=== PATIENT | male | born 1960 | race Caucasian/White ===

== ENCOUNTER 2024-12-26 05:59 | Day surgery (SDC) | payer BC, SELFPAY ==
[2024-12-19 07:09] VITALS: BMI 30.9
[2024-12-19 07:19] LABS: Hematocrit 48.2 % (39.0-52.0); Hemoglobin 16.0 g/dL (13.0-18.0); Mean Corp Hgb Conc. 33.2 g/dL (33.0-37.0); Mean Corpuscular Volume 87.2 fL (80.0-94.0); Nucleated Red Blood Cells % 0 % (-); Platelet Count 199 10^3/uL (130-400); Red Cell Dist. Width 13.9 % (11.5-14.5)
[2024-12-19 07:35] LABS: INR 1.77; PT 20.8 Sec (11.4-14.6)
[2024-12-19 07:44] LABS: ALT (SGPT) 25 U/L (0-50); AST (SGOT) 23 U/L (17-59); Albumin 4.5 g/dl (3.5-5.0); Alkaline Phosphatase 97 U/L (38-126); Calcium 10.1 mg/dl (8.4-10.2); Carbon Dioxide 29 mmol/L (22-30); Chloride 107 mmol/L (98-107); Estimated Creatinine Clearance 95 ml/min; Glucose 93 mg/dl (70-99); Magnesium 2.1 mg/dl (1.6-2.3); Potassium 5.1 mmol/L (3.5-5.1); Sodium 142 mmol/L (135-145); Total Protein 7.4 g/dl (6.3-8.2); eGFR > 60.00
[2024-12-19 07:46] LABS: Blood Urea Nitrogen 14 mg/dl (9-20)
--- NOTE | 2024-12-19 08:29 | HPS.HSE ---
Family Physician
-
Family Physician: CHIN Tubbs
Chief Complaint
-
Persistent atrial fibrillation.
History of Present Illness
The patient is a 64 year old male presenting today for persistent atrial fibrillation. He does report a history of anxiety, fatigue, and decreased exercise tolerance secondary to this diagnosis. He previously underwent a cardioversion in
August of this year. Unfortunately, his arrhythmia returned soon after this procedure. He is on current pharmacological therapy with Metoprolol Succinate and Diltiazem. He does report compliance with Xarelto for oral anticoagulation due to a
[id number] of 2. He is interested in pursuing pulmonary vein isolation for more definitive arrhythmia management. He denies any complaints today such as chest pain, shortness of breath at rest, nausea, vomiting, diarrhea, lightheadedness,
dizziness, cough, sore throat, or fever.
Medical History
Past Medical History
Past Medical History: Reports Other
Additional Past Medical History:
1. Persistent atrial fibrillation, status post cardioversion 08/2024; pharmacological therapy with Diltiazem and Metoprolol Succinate, oral anticoagulation with Xarelto.
2. Hypertension.
3. Hyperlipidemia.
4. Coronary artery disease/inferior STEMI, 2013, status post PCI with bare metal stent to proximal circumflex and balloon angioplasty of branch of third obtuse marginal.
5. Left lower extremity venous varicosities.
6. Obstructive sleep apnea, compliant with CPAP.
7. Small hiatal hernia.
8. Lumbar degenerative disc disease.
9. Enlarged right lobe of thyroid gland on pre-ablation chest CT.
10. Impaired fasting glucose.
11. Obesity, BMI 30.9.
12. History of tobacco abuse.
Past Surgical History: Reports Other
Additional Past Surgical History:
1. Cardioversion.
2. PCI with bare metal stent to proximal circumflex and balloon angioplasty of branch of third obtuse marginal.
3. Lumbar fusion.
4. [place] teeth extraction.
5. Dental extraction.
Social History
Tobacco: Former Smoker (He is a former 1 and 1/2 pack per day cigarette smoker who quit tobacco altogether in 2013. )
Alcohol: None
Personal:
Living: Other (He lives with his in a 3 story home. )
Family History
Family History: Not pertinent and Diabetes
Allergies / Home Medications
Allergy/Medication List:
Home medications:
1. Atorvastatin 40 mg p.o. at noon.
2. Diltiazem HCl 120 mg p.o. at noon.
3. Metoprolol Succinate 100 mg p.o. at noon.
4. Xarelto 20 mg p.o. at noon.
5. Zepbound 15 mg subcutaneous on Saturdays.
Allergies: No known drug allergies.
Review of Systems
-
A 12 point ROS was completed and negative except as noted: Yes
Physical Exam
Vital Signs
Blood pressure 141/78. Heart rate 72. Respirations 18. Pulse ox 100% on room air.
Height 6 feet. Weight 103.3 kg. BMI 30.9.
Physical Exam
General: Well Developed, Well Nourished and No Apparent Distress
HEENT: NormoCephalic, Moist mucous membranes, Atraumatic and PERRLA
Respiratory: Clear
Cardiac: Irregular Rhythm
GI: Soft, Non Tender, Non Distended and Other (Obese. )
Musculoskeletal: No Edema and Normal Gait & Station
Skin: Warm and Dry
Neuro: AO x 3 and Nonfocal/grossly intact
Laboratory Results
-
12/19/24 06:30
12/19/24 06:30
Laboratory Results
PT 20.8 Sec (11.4-14.6) H 12/19/24 06:30
INR 1.77 12/19/24 06:30
Total Bilirubin 0.8 mg/dl (0.2-1.3) 12/19/24 06:30
AST 23 U/L (17-59) 12/19/24 06:30
ALT 25 U/L (0-50) 12/19/24 06:30
Alkaline Phosphatase 97 U/L (38-126) 12/19/24 06:30
Magnesium 2.1.
Type and screen A positive.
EKG 12/19/2024: Atrial fibrillation.
Chest CT 12/20/2024: Single, individual right superior and inferior pulmonary veins. Conjoined left superior and inferior pulmonary veins forming a single left pulmonary venous ostium. No left atrial filling defect/thrombus is identified. Slightly
enlarged and heterogeneous right lobe of the thyroid gland for which a follow-up thyroid ultrasound could be considered if not previously performed.
Echocardiogram 05/2022: Mild LVH. RVSP 32 mmHg. Trace aortic insufficiency.
Impression/Plan
-
IMPRESSION/PLAN:
1. Persistent atrial fibrillation: The patient is in need of a pulmonary vein isolation with Dr. Bennie Arechiga on 12/26/2024. The benefits and risks of the procedure have been explained to the patient. The patient understands these risks and wishes
to proceed. He will not be required to undergo a pre-procedural transesophageal echocardiogram as he has been compliant with his home oral anticoagulation. He is aware to continue Xarelto uninterrupted prior to his ablation. He will hold his
Zepbound within 1 week of his procedure. He will take no medications the morning of his ablation.
2. Enlarged right lobe of thyroid gland on pre-ablation chest CT: The patient was notified of this result through pre-operative phone call. Per radiology, a thyroid ultrasound could be considered if not previously preformed. Results of his chest CT
will be forwarded to his primary care physician, Dr. Reynaldo Tran, for further follow-up.
[2024-12-26] VITALS (13 sets, daily range): BP systolic 99–118; BP diastolic 69–87; BMI 30.9
--- NOTE | 2024-12-26 07:07 | ITS.CL.ABL ---
Client Application Support Engineer - Ablation
Ablation
Procedure Report:
Primary Cellar Packer: Dr Cha
Procedure Date: 12/26/2024
Patient History:
Patient is a pleasant 64-year-old male with a past medical history significant for CAD with inferior STEMI with PCI 2013, ED, hyperlipidemia, hypertension, and symptomatic persistent atrial fibrillation.
See H&P for complete details.
Indication:
Symptomatic persistent atrial fibrillation
Arrhythmia Specific History:
Prior Medical Therapies for Rate and Rhythm Control:
X Beta-osvaldo
X Calcium channel-osvaldo
[ ] Amiodarone
[ ] Dronederone
[ ] Sotalol
[ ] Flecainide
[ ] Dofetilide
[ ] Options limited by bradycardia
[ ] Options limited by comorbid renal disease
Prior Procedural Therapies for AF/AFL:
X Cardioversion - early recurrence
[ ] Pulmonary Vein Isolation
[ ] Posterior Wall Isolation
[ ] Additional lines (Specify)
[ ] Surgical Ochoa-MAZE or PVI (Specify)
Procedure Performed:
X AF ablation procedure (68507) -- includes LA/CS pacing, trans-septal, 3D mapping, + ICE
[ ] +IV drug (89397)
X +Other Arrhythmia (13546) - typical right atrial flutter (CTI RFA)
X +Other AF Line/ablation (23046) - floor line, roof line, posterior wall isolation
Risks and expected recovery has been explained in detail. Alternative options have been explored, and in a shared-decision making fashion we have decided that this was the most appropriate procedure.
Method
NPO status confirmed. Grounding pad applied. Defibrillator pads applied. Continuous surface ECG, pulse oximetry, and blood pressure were monitored. Procedure was performed under general anesthesia, with anesthesia services.
Both groins were clipped, prepped with Chloraprep, and draped in sterile fashion. Time out was called. Local anesthesia administered with bupivacaine. The right femoral vein was accessed for catheter placement, using ultrasound guidance (images
saved to record), micro-puncture needle/wire, and modified seldinger technique. 3 sheaths were placed. The following catheters were used:
X TactiFlex SE (D/F Curve) ablation catheter
X Viewflex 9Fr ICE catheter
X Inquiry decapolar 6Fr diagnostic catheter
[ ] CRD Hex 6Fr
X FlexCath Contour 10 Fr with PulseSelect PFA Catheter
X Advisor HD Grid Mapping Catheter, SE
[ ] AcusAthos AcuNav 8 Fr ICE catheter
[ ]Other: [ ]
Intracardiac ultrasound (ICE) was carefully advanced into the right atrium to guide sheath placement over a J-wire, catheter placement, guide trans-septal puncture, identify potential complications, identify anatomic structures and ensure proper
contact between ablation catheter and tissue.
Heparin was given prior to trans-septal puncture. Heparin was given to achieve and maintain a target ACT of 300-400 seconds throughout the procedure.
Trans-septal access was performed under ICE guidance. The trans-septal puncture was performed with a SafeSept wire through a Brockenbrough needle assembly through the steerable sheath. The wire was visualized as it entered the LSPV and system
advanced under ICE guidance and fluoroscopy into the LA. The Brockenbrough needle assembly, SafeSept wire and sheath dilator were removed under negative pressure. LA pressure was measured and recorded.
ICE and 3D mapping was performed to identify relevant cardiac structures. A careful 3D map was created to assess for regions of low-voltage and abnormal electrogram signals using HD grid mapping catheter and PulseSelect catheter. Additional mapping
was performed as outlined below.
Prior to ablation, glycopyrrolate was provided. PulseSelect catheter was advanced over J-wire to the ostium of each vein. Pulmonary vein isolation was performed with ostial and antral lesions in a circumferential manner. Contact was visualized via
EAM, ICE, fluoroscopy, and EGM signals.
After accomplishing pulmonary venous isolation, mapping identified additional areas likely to be extra PV contributors to atrial fibrillation. These areas demonstrated patchy low voltage as well as complex fractionated electrograms. These areas can
be sites for the formation of rotors which can drive and maintain atrial fibrillation. These areas are known to be significant contributors to initiation and perpetuation of atrial fibrillation.
Additional energy applications/additional ablation sets targeted extra PV contributors to atrial fibrillation.
Targets for additional PFA ablation included: LA posterior wall targeted with pulsed electric field energy isolating the posterior wall of the left atrium. Posterior wall isolation was performed by anchoring the J-wire within the pulmonary vein and
placing the PulseSelect catheter in contact posterior wall as visualized by aforementioned methods.
After ablation of the posterior wall, targets remained including:
- Inferior LA floor
- Anterior LA roof
- The ridge of tissue between the left atrial appendage and the left sided pulmonary veins (Ligament of Maycol)
These areas were ablated using pulsed electric field energy eliminating the extra PV contributors to atrial fibrillation.
Following completion of ablation lesions, patient was noted to be an concentrically activated atrial flutter. Pacing from proximal coronary sinus catheter demonstrated concealed entrainment. Morphology by surface twelve-lead demonstrated typical
flutter with a cycle length of 250 ms. Sinus rhythm was restored with a 200J synchronized DCCV and a post-ablation voltage/activation map was performed in sinus rhythm. Entrance and exit block were confirmed for each vein and the posterior wall.
Catheter and sheath were removed from the left atrium and post-ablation intracardiac echo evaluation was consistent with pre-ablation with no changes and no pericardial effusion and there is no left atrial thrombus or left ventricle thrombus seen.
In the right atrium, the HD advisor grid was advanced and EAM was taken of the right atrium with careful attention to anatomic landmarks, including the coronary sinus, IVC-RA and SVC-RA junction, tricuspid valve annulus, and region of the His bundle
electrogram. Next, utilizing electroanatomic three-dimensional navigation, a 3.5 mm tip TactiFlex SE irrigated ablation catheter was advanced to the right atrium with the assistance of the steerable long sheath. An ablation line was created from
the tricuspid annulus to the IVC in the 6:00 position ([employer] clock). Power was titrated between 30 and 40 [place]. The line was completed during CS pacing, and bidirectional block was achieved. The ablation line was mapped to ensure widely spaced
double potentials, and after a minute waiting period, bidirectional block persisted.
Again, post-ablation intracardiac echo evaluation was consistent with pre-ablation with no changes and no pericardial effusion and there is no left atrial thrombus or left ventricle thrombus seen. Electrophysiology study was performed. No
arrhythmia was induced. Hemostasis was obtained with figure of 8 stitch for each groin and with manual pressure. Protamine was used for reversal.
Estimated Blood Loss
5 mL
Complications
None
Fluoroscopy: 3.1 minutes; 12.7 mGy; DAP 1.79
LA Pressure: Pre 8 mmHg, post 8 mmHg
Baseline Intervals:
Rhythm: AF
QRS: 83 ms
Post-Procedure Intervals:
NV: 159 ms
QRS: 95 ms
QT: 408 ms
AVWB: 360 ms
AVNERP: 600/210 ms
AERP: 600/210 ms
Recommendations
- Bedrest with straight-leg precautions as ordered
- Anticipate same day discharge if patient meeting clinical metrics
- Resume home medications as indicated
- Ok to resume anticoagulation tonight if patient and groin sites stable
- Plan for follow-up in office as scheduled
Bennie Arechiga, , FACC, RS
Clinical Cardiac Dye Range Operator [employer]
cc: Dr Reynaldo Tran; Dr Kristel Cha
[2024-12-26] MEDS: NSS 500 IV (07:20)
[2024-12-26 08:32] LABS: ACT-LR - POC 326 Seconds (116-155)
[2024-12-26 08:50] LABS: ACT-LR - POC 379 Seconds (116-155)
[2024-12-26 09:40] LABS: ACT-LR - POC 340 Seconds (116-155)
[2024-12-26 10:03] LABS: ACT-LR - POC 380 Seconds (116-155)
[2024-12-26 10:10] LABS: ACT-LR - POC > 397 Seconds (116-155)
[2024-12-26 10:13] LABS: ACT-LR - POC 160 Seconds (116-155)
[2024-12-26] MEDS: TYLENOL 650 MG PO ×2 (10:55→14:49)
--- NOTE | 2024-12-26 15:25 | W.PN.UPDATE ---
Update Note
Progress Note Update
Pt seen post ablation. Right groin site without ht/bleeding, oob ambulating. Urinating without difficulty. Post EKG NSR 75, no acute changes. Resume xarelto tonight at usual time. Continue other meds as before. Followup at [facility] as scheduled. Home
today as groin site/tele remain stable.
== END 2024-12-26 14:59 | disposition home or self-care (01) ==
LOC: CATH 05:59
PROVIDERS: ATTENDING PHYSICIAN Internal Medicine Cardiovascular Disease; FAMILY PHYSICIAN Nurse Practitioner; OTHER PHYSICIAN Internal Medicine Cardiovascular Disease
DX: I48.19 Other persistent atrial fibrillation (principal); I10 Essential (primary) hypertension; E78.5 Hyperlipidemia, unspecified; Z95.5 Presence of coronary angioplasty implant and graft; I25.10 Atherosclerotic heart disease of native coronary artery without angina pectoris; I25.2 Old myocardial infarction; E66.9 Obesity, unspecified; Z68.30 Body mass index [BMI] 30.0-30.9, adult; G47.33 Obstructive sleep apnea (adult) (pediatric); M51.369 Other intervertebral disc degeneration, lumbar region without mention of lumbar back pain or lower extremity pain; R73.01 Impaired fasting glucose; Z87.891 Personal history of nicotine dependence; I48.92 Unspecified atrial flutter
CPT/HCPCS: C1732; C1730; C1733; C1894; C1769; 36415; 75572; 80053; 83735; 85025; 85347; 85610; 86850; 86900; 86901; 93005; 93655; 93656; 93657; C1766; Q9967